=== PATIENT | male | born 1995 | race Caucasian/White ===

== ENCOUNTER → 2021-08-21 | Outpatient (CLI) | payer OTHER ==
--- NOTE | 2021-08-21 21:52 | US ---
EXAMINATION TYPE: US groin RT DATE OF EXAM: 08/21/2021 COMPARISON: NONE CLINICAL HISTORY: 25-year-old male R10.2 PELVIC AND PERINEAL PAIN. Pt states generalized groin/testic le pain on/off x many months TECHNIQUE: Targeted ultrasound examination along the right inguinal region. FINDINGS: A 1.3 x 0.4 cm lymph node within right groin shows no abnormal cortical thickening. Otherwise no abno rmality visualized to account for pt's symptoms Please note valsalva images obtained The medical appointment clerk did not visualize any internal hernia during real-time scanning. IMPRESSION: A prominent but nonenlarged right inguinal lymph node. No other specific abnormality seen along the r ight inguinal region.
--- NOTE | 2021-08-21 21:53 | US ---
EXAMINATION TYPE: US groin LT DATE OF EXAM: 08/21/2021 COMPARISON: NONE CLINICAL HISTORY: R10.2 PELVIC AND PERINEAL PAIN. Pt states generalized groin and testicle pain on/of f x many months TECHNIQUE: Targeted ultrasound examination along the left inguinal region. FINDINGS: A 1.4 x 0.4 cm lymph node within left groin shows no abnormal cortical thickening. Otherwise no abnor mality visualized to account for pt's symptoms Please note valsalva images obtained The instructional systems specialist did not visualize any internal hernia during real-time scanning. IMPRESSION: A prominent but nonenlarged left inguinal lymph node, similar to the contralateral side. No other spe cific abnormality seen along the left inguinal region.
--- NOTE | 2021-08-21 21:55 | US ---
EXAMINATION TYPE: US scrotum with doppler. DATE OF EXAM: 08/21/2021 COMPARISON: NONE CLINICAL HISTORY: 25-year-old male N50.819 TESTICULAR PAIN. Pt states generalized testicle pain on/of f x many months TECHNIQUE: Grayscale and color Doppler Duplex imaging performed of the scrotum. FINDINGS: EXAM MEASUREMENTS: TESTICLES: Right Testicle: 4.0 x 2.4 x 3.2 cm Left Testicle: 4.6 x 2.2 x 3.6 cm EPIDIDYMIS HEAD: Right Epididymis: 1.1 cm Left Epididymis: 1.1 cm Doppler performed to assess for testicular vascularity; good bilateral color flow and waveforms are s een. There is no evidence of testicular torsion. Presence of hydroceles: No Presence of varicoceles: No [employer] notes: No abnormality visualized to account for pt's symptoms IMPRESSION: Unremarkable scrotal ultrasound. No evidence for testicular torsion, varicocele, or hydrocele.
== END | disposition home or self-care (01) ==
LOC: RADUSWWP 16:04
DX: R10.2 Pelvic and perineal pain (principal); N50.819 Testicular pain, unspecified
CPT/HCPCS: 76870; 93975